=== PATIENT | male | born 1965 | race Caucasian/White ===

== ENCOUNTER → 2020-10-18 | Outpatient (CLI) | payer OTHER ==
[~2020-10-18] MED LIST: AMLO10 PO; ATEN50 PO; FLUO20 PO; Zyprexa10 MG PO
== END ==
LOC: LAB SHORT 13:02
DX: R35.0 Frequency of micturition (principal); R32 Unspecified urinary incontinence
CPT/HCPCS: 87086

== ENCOUNTER 2021-01-20 14:27 | Inpatient (IN) | payer OTHER ==
[~2021-01-20] VITALS: Ht 175.3 cm; Wt 65.0 kg
[~2021-01-20 14:27] MED LIST changes: -AMLO10 PO; +AMLO5 PO; -FLUO20 PO; -Zyprexa10 MG PO
[2021-01-20 14:40] LABS: BASOPHILS ABSOLUTE AUTO 0.03 K/mm3 (0.00-0.23); BASOPHILS PERCENT AUTO 0 % (0-2); EOSINOPHILS PERCENT AUTO 0 % (0-6); Hematocrit 45.3 % (37.0-53.0); Hemoglobin 15.5 g/dL (13.5-17.5); IMMATURE GRAN ABSOLUTE AUTO 0.05 K/mm3 (0.00-0.10); IMMATURE GRAN PERCENT AUTO 0 % (0-1); LYMPHOCYTES ABSOLUTE AUTO 0.43 K/mm3 (0.84-5.20); LYMPHOCYTES PERCENT AUTO 3 % (21-46); MONOCYTES ABSOLUTE AUTO 1.25 K/mm3 (0.16-1.47); MONOCYTES PERCENT AUTO 8 % (4-13); Mean Corpuscular HGB 30.6 pg (26.0-34.0); Mean Corpuscular HGB Conc 34.2 g/dL (31.5-36.5); Mean Corpuscular Volume 90 fL (80-100); Mean Platelet Volume 10.6 fL (9.1-12.4); NEUTROPHILS ABSOLUTE AUTO 13.04 K/mm3 (1.96-9.15); NEUTROPHILS PERCENT AUTO 88 % (41-73); Platelet Count 183 K/mm3 (150-400); RDW Coefficient Variation 12.2 % (11.7-14.2); RDW Standard Deviation 40.6 fL (35.1-46.3); Red Blood Cell Count 5.06 M/mm3 (4.30-5.90)
[2021-01-20 15:19] LABS: Alanine Aminotransfer (ALT/SGP 28 U/L (12-78); Albumin, Blood 3.6 g/dL (3.4-5.0); Albumin/Globulin Ratio 1.1 (0.8-1.8); Alk Phos 85 U/L (50-136); Anion Gap 9 mmol/L (6-16); Aspartate Aminotrans (AST/SGOT 26 U/L (12-37); Bilirubin, Total 1.2 mg/dL (0.1-1.0); Blood Urea Nitrogen 9 mg/dL (8-24); Bun/Creatinine Ratio 10.7 (12.0-20.0); CO2, Blood 26 mmol/L (21-32); Chloride, Blood 105 mmol/L (98-108); Creatinine, Blood 0.84 mg/dL (0.60-1.20); Ethanol (Alcohol), Blood, Med <3 mg/dL; Globulin, Blood 3.2 g/dL (2.2-4.0); Glomerular Filtration Rate >60 (60-); Glucose, Blood 120 mg/dL (70-99); Potassium, Blood 3.8 mmol/L (3.5-5.5); Sodium, Blood 140 mmol/L (136-145); Total Protein, Blood 6.8 g/dL (6.4-8.2)
[2021-01-20 15:35] LABS: Source, Urine Catheter
[2021-01-20 15:38] LABS: Influenza A, PCR NEGATIVE (NEGATIVE); Influenza B, PCR NEGATIVE (NEGATIVE); Resp Syncytial Virus, PCR NEGATIVE (NEGATIVE); SARS-Cov-2 (COVID-19) PCR, MMC NEGATIVE (NEGATIVE)
[2021-01-20 15:52] LABS: U Amphetamine Screen Not Detected; U Barbituate Screen Not Detected; U Benzodiazapine Screen DETECTED; U Buprenorphine Screen Not Detected; U Cannabinoids Screen Not Detected; U Cocaine Screen Not Detected; U Methadone Screen Not Detected; U Methamphetamine Screen Not Detected; U Opiates Screen Not Detected; U Oxycodone Screen Not Detected; U Phencyclidine Screen Not Detected; U Propoxyphene Screen Not Detected
[2021-01-20 15:55] LABS: Appearance, Urine Hazy (Clear); Bilirubin, Urine Neg (Neg); Blood, Urine Neg (Neg); Color, Urine Yellow (P-Yellow); Glucose Qualitative, Urine Neg (Neg); Ketones, Urine 1+ (Neg); Leukocyte Esterase, Urine Neg (Neg); Nitrite, Urine Neg (Neg); Protein, Urine 2+ (Neg); Specific Gravity, Urine 1.025 (1.003-1.022); Urobilinogen, Urine 1+ (Normal)
[2021-01-20 16:00] LABS: Amorphous Heavy (0-Heavy); Bacteria Many /hpf; Red Blood Cells, Urine 0-2 /hpf (0-2); Squamous Epithelial Cells Few /hpf (Few); White Blood Cells, Urine 0-2 /hpf (0-5)
[2021-01-20 18:45] LABS: CHOL/HDL RATIO 2.8; Cholesterol 152 mg/dL (50-200); HDL Cholesterol 55 mg/dL (>39); LDL/HDL RATIO 1.4; Low Density Lipoprotein Chol 75 mg/dL (0-110); Magnesium, Blood 2.1 mg/dL (1.6-2.4); Triglycerides 108 mg/dL (30-160); Very Low Density Lipoprot Chol 21 mg/dL (6-32)
[2021-01-20 18:46] LABS: Thyroid Stimulating Hormone 0.834 uIU/mL (0.360-4.800)
[2021-01-21 04:15] LABS: BASOPHILS ABSOLUTE AUTO 0.03 K/mm3 (0.00-0.23); BASOPHILS PERCENT AUTO 0 % (0-2); EOSINOPHILS ABSOLUTE AUTO 0.02 K/mm3 (0.00-0.68); EOSINOPHILS PERCENT AUTO 0 % (0-6); Hematocrit 43.1 % (37.0-53.0); Hemoglobin 14.7 g/dL (13.5-17.5); IMMATURE GRAN ABSOLUTE AUTO 0.05 K/mm3 (0.00-0.10); IMMATURE GRAN PERCENT AUTO 0 % (0-1); LYMPHOCYTES ABSOLUTE AUTO 1.31 K/mm3 (0.84-5.20); LYMPHOCYTES PERCENT AUTO 10 % (21-46); MONOCYTES ABSOLUTE AUTO 1.21 K/mm3 (0.16-1.47); MONOCYTES PERCENT AUTO 9 % (4-13); Mean Corpuscular HGB 30.4 pg (26.0-34.0); Mean Corpuscular HGB Conc 34.1 g/dL (31.5-36.5); Mean Corpuscular Volume 89 fL (80-100); Mean Platelet Volume 11.3 fL (9.1-12.4); NEUTROPHILS ABSOLUTE AUTO 10.21 K/mm3 (1.96-9.15); NEUTROPHILS PERCENT AUTO 80 % (41-73); Platelet Count 174 K/mm3 (150-400); RDW Standard Deviation 39.5 fL (35.1-46.3); Red Blood Cell Count 4.83 M/mm3 (4.30-5.90); White Blood Cell Count 12.83 K/mm3 (4.00-11.30)
[2021-01-21 04:40] LABS: Alanine Aminotransfer (ALT/SGP 27 U/L (12-78); Albumin, Blood 3.1 g/dL (3.4-5.0); Albumin/Globulin Ratio 0.9 (0.8-1.8); Alk Phos 79 U/L (50-136); Anion Gap 6 mmol/L (6-16); Aspartate Aminotrans (AST/SGOT 31 U/L (12-37); Blood Urea Nitrogen 7 mg/dL (8-24); Bun/Creatinine Ratio 10.3 (12.0-20.0); CO2, Blood 27 mmol/L (21-32); Calcium, Blood 8.9 mg/dL (8.5-10.1); Chloride, Blood 105 mmol/L (98-108); Creatinine, Blood 0.68 mg/dL (0.60-1.20); Globulin, Blood 3.5 g/dL (2.2-4.0); Glomerular Filtration Rate >60 (60-); Glucose, Blood 97 mg/dL (70-99); Magnesium, Blood 2.3 mg/dL (1.6-2.4); Potassium, Blood 3.5 mmol/L (3.5-5.5); Sodium, Blood 138 mmol/L (136-145); Total Protein, Blood 6.6 g/dL (6.4-8.2)
--- NOTE | 2021-01-21 05:07 | NUR ---
SHIFT SUMMARY ASSUMED CARE OF PT FROM ER AT 2335. PT LETHARGIC AND UNRESPONSIVE. NON VERBAL. SATS OVER 90% ON RA. HR NSR. BP ELEVATED. DEVELOPMENTALLY DELAYED AT BASELINE, WITH COGNITION OF 13 YEAR OLD PER HIS MOTHER. HIS MOTHER IS PRESENT AND STAYED THE NIGHT. ON BED REST. WILL REACH OUT WHEN PHYSICALLY STIMULATED. NPO. IN BED SLEEPING WITH CALL ALARM AT SIDE. WILL CONTINUE TO MONITOR UNTIL REPORT GIVEN
--- NOTE | 2021-01-21 09:43 | NUR ---
PATIENT SLEEPING IN BED THIS AM, NOT OPENING EYES AND NONVERBAL. MOANS AND MOVES EXTREMITIES WITH STERNAL RUB. MOTHER AT BEDSIDE. RIGHT PUPIL REACTIVE TO LIGHT. LEFT EYE HISTORY OF BLINDNESS PER MOM. WEAK BILATERAL SENIOR PORTFOLIO ANALYST. FOLLOWS SOME VERBAL COMMANDS. CARBON PAPER MACHINE OPERATOR IN ROOM AT LATER TIME AND STATED PATIENT SAID "YES" TWICE. ON ROOM AIR SATING MID 90'S. TELE SHOWING SINUS RHYTHM WITH HR 70-80'S. BP STABLE. DOES NOT APPEAR TO BE IN ANY PAIN. ATTENDS IN PLACE. NPO AT THIS TIME. Q4 ORAL CARE WITH Q2 TURNING AND NEEDED. ULTRASOUND DONE THIS AM AND PATIENT CURRENTLY AT MRI. WILL CONTINUE TO MONITOR.
--- NOTE | 2021-01-21 17:30 | NUR ---
SHIFT SUMMARY: PATIENT SLOWLY BECOMING MORE VERBAL. ABLE TO ANSWER YES AND NO QUESTIONS. STATING DATE OF AND MOTHERS NAME. PER PATIENTS MOTHER THAT IS MUCH SHE GETS HIM TO TALK AT HOME. SLEEPING ON AND OFF THROUGHOUT SHIFT. MEDICAL STATUS NO TELE. REMAINS ON ROOM AIR. SATING MID 90'S. WEAK MOIST SOUNDING COUGH. ORAL CARE Q4. TURNING Q2. CONDOM CATH IN PLACE. ATTENDS IN PLACE. D5W AND 1/2 NS INFUSING. CBG CHECKS BID. CALL LIGHT IN REACH. SPEECH THERAPY PLANS TO SEE PATIENT IN AM. MOTHER AT BEDSIDE PLANS TO BE BACK IN AM TO HELP WITH DAILY CARES. BP REMAINS HIGH. WILL CONTINUE TO MONITOR AND REPORT OFF.
[2021-01-22 04:19] LABS: BASOPHILS ABSOLUTE AUTO 0.03 K/mm3 (0.00-0.23); BASOPHILS PERCENT AUTO 0 % (0-2); EOSINOPHILS ABSOLUTE AUTO 0.04 K/mm3 (0.00-0.68); EOSINOPHILS PERCENT AUTO 0 % (0-6); Hematocrit 39.3 % (37.0-53.0); Hemoglobin 13.7 g/dL (13.5-17.5); IMMATURE GRAN ABSOLUTE AUTO 0.03 K/mm3 (0.00-0.10); IMMATURE GRAN PERCENT AUTO 0 % (0-1); LYMPHOCYTES ABSOLUTE AUTO 1.48 K/mm3 (0.84-5.20); LYMPHOCYTES PERCENT AUTO 13 % (21-46); MONOCYTES ABSOLUTE AUTO 0.98 K/mm3 (0.16-1.47); MONOCYTES PERCENT AUTO 9 % (4-13); Mean Corpuscular HGB Conc 34.9 g/dL (31.5-36.5); Mean Corpuscular Volume 89 fL (80-100); Mean Platelet Volume 11.2 fL (9.1-12.4); NEUTROPHILS ABSOLUTE AUTO 8.63 K/mm3 (1.96-9.15); NEUTROPHILS PERCENT AUTO 77 % (41-73); Platelet Count 157 K/mm3 (150-400); RDW Standard Deviation 39.1 fL (35.1-46.3); Red Blood Cell Count 4.42 M/mm3 (4.30-5.90); White Blood Cell Count 11.19 K/mm3 (4.00-11.30)
[2021-01-22 05:37] LABS: Anion Gap 9 mmol/L (6-16); Blood Urea Nitrogen 6 mg/dL (8-24); CO2, Blood 27 mmol/L (21-32); Chloride, Blood 101 mmol/L (98-108); Creatinine, Blood 0.67 mg/dL (0.60-1.20); Glomerular Filtration Rate >60 (60-); Glucose, Blood 96 mg/dL (70-99); Potassium, Blood 3.6 mmol/L (3.5-5.5); Sodium, Blood 137 mmol/L (136-145)
--- NOTE | 2021-01-22 05:57 | NUR ---
SHIFT SUMMARY PT RESTED WELL THROUGH THE NIGHT. DID WAKE UP A COUPLE TIMES ATTEMPTING TO GET OUT OF BED WIHTOUT USING CALL LIGHT. PT WAS ABLE TO VERBALIZE HIS NEEDS IN FEW WORD SENTENCES. MENTATION SEEMS TO BE HEADING TO BASELINE PER FAMILY. NO TELE, BUT NO C/O CHEST PAIN OR ANY SIGNS OF CARDIAC EVENTS. SATS >95% ON ROOM AIR. WAS ABLE TO BE 1-2 PERSON ASSIST TO BSC TO VOID, PT WASNT ABLE TO URINATE IN URINAL. NO BM. DID PULL AT LINES, BUT WAS ABLE TO REORIENT AND REMIND PT TO NOT PULL LINES. ATIVAN X1 FOR AGITATION. NO SEIZURE-LIKE ACTIVITY. VSS. NO C/O PAIN. CALL LIGHT WITHIN REACH, BED IN LOWEST POSITION. WILL CONTINUE TO MONITOR. BED ALARM ON.
--- NOTE | 2021-01-22 08:00 | NUR ---
INITIAL ASSESSMENT: SPEECH THERAPY AT BEDSIDE FOR EVAL, PT FAILED-REMAIN NPO AND HE WILL BE REASSESSED. HE WAS ASSISTED OOB TO THE BSC TO VOID, PT IS ABLE TO STAND WELL BUT APPEARS TO HAVE PROBLEMS WITH BALANCE. CHAIR ALARM IN PLACE PATIENT IS IMPULSIVE AND HAS NOT USED THE CALL LIGHT. MOTHER AT THE BEDSIDE. VSS. LS CORASE WITH EXP WHEEZING, BIOX WNL ON RA. PT HAS WEAK NPC, MOTHER STATES PT HAS COPD. PT TO ROOM FOR ASSESSMENT, WILL CONTINUE TO MONITOR.
--- NOTE | 2021-01-22 17:07 | NUR ---
SUMMARY: PATIENT HAS BEEN RESTING THE MAJORITY OF THE DAY. HE WAS ABLE TO WORK WITH PT/OT,HE AMBULATED IN THE HALLWAY. HE WAS NOT ABLE TO PASS HIS SWALLOW EVAL, SPEECH THERAPY WAS CONCERNED ABOUT HIS COUGH AND SOME SIGNS OF ASPIRATION WITH CERTIAN TEXTURES-WILL REASSESS AGAIN TOMORROW. BS HAVE BEEN STABLE WITH D5 1/2 NS. HE SEEMS TO BE MORE ORIENTED TODAY. HE CONTINUES TO BE IMPULSIVE WITH BED ALARM ON. HE HAS COARSE LS WITH SOME WHEEZING T/O, AND A WEAK NPC-MD ORDERED F/U CHEST X-RAY.MOM STATES PT HAS CHRONIC COUGH BUT IS NEVER ABLE TO GET SPUTUM OUT. BIOX HAS BEEN STABLE ON RA. NO ACUTE CHANGES THIS SHIFT, WILL REPORT TO ONCOMING RN.
--- NOTE | 2021-01-23 03:28 | NUR ---
SHIFT SUMMARY A/O TO SELF AND FAMILY. PCU TRANSFER THIS SHIFT. 1-2 WORD RESPONSES WHICH IS BASELINE. WEAK GAIT, 1 ASSIST WITH GB. STRICT NPO. VSS, NO ACUTE CHANGES AT THIS TIME. BED IN LOWEST POSITION WITH CALL LIGHT IN REACH. WILL CONTINUE TO MONITOR AND REPORT TO ONCOMING RN.
[2021-01-23 06:03] LABS: BASOPHILS ABSOLUTE AUTO 0.02 K/mm3 (0.00-0.23); BASOPHILS PERCENT AUTO 0 % (0-2); EOSINOPHILS ABSOLUTE AUTO 0.04 K/mm3 (0.00-0.68); EOSINOPHILS PERCENT AUTO 1 % (0-6); Hematocrit 40.4 % (37.0-53.0); Hemoglobin 13.8 g/dL (13.5-17.5); IMMATURE GRAN ABSOLUTE AUTO 0.02 K/mm3 (0.00-0.10); IMMATURE GRAN PERCENT AUTO 0 % (0-1); LYMPHOCYTES ABSOLUTE AUTO 1.18 K/mm3 (0.84-5.20); LYMPHOCYTES PERCENT AUTO 15 % (21-46); MONOCYTES ABSOLUTE AUTO 0.97 K/mm3 (0.16-1.47); MONOCYTES PERCENT AUTO 12 % (4-13); Mean Corpuscular HGB 30.2 pg (26.0-34.0); Mean Corpuscular HGB Conc 34.2 g/dL (31.5-36.5); Mean Corpuscular Volume 88 fL (80-100); Mean Platelet Volume 11.5 fL (9.1-12.4); NEUTROPHILS ABSOLUTE AUTO 5.62 K/mm3 (1.96-9.15); NEUTROPHILS PERCENT AUTO 72 % (41-73); Platelet Count 165 K/mm3 (150-400); RDW Standard Deviation 38.8 fL (35.1-46.3); Red Blood Cell Count 4.57 M/mm3 (4.30-5.90); White Blood Cell Count 7.85 K/mm3 (4.00-11.30)
[2021-01-23 07:13] LABS: Anion Gap 9 mmol/L (6-16); Blood Urea Nitrogen 5 mg/dL (8-24); Bun/Creatinine Ratio 7.5 (12.0-20.0); CO2, Blood 28 mmol/L (21-32); Calcium, Blood 8.7 mg/dL (8.5-10.1); Chloride, Blood 101 mmol/L (98-108); Creatinine, Blood 0.67 mg/dL (0.60-1.20); Glomerular Filtration Rate >60 (60-); Glucose, Blood 79 mg/dL (70-99); Potassium, Blood 3.5 mmol/L (3.5-5.5); Sodium, Blood 138 mmol/L (136-145)
[2021-01-23] MEDS ORDERED: ZESTRIL40 M1 PO (16:38)
[2021-01-23] MEDS ORDERED: METO50ER PO (16:39)
[2021-01-23] MEDS ORDERED: Prozac40 MG PO (16:39)
[2021-01-23] MEDS ORDERED: Zyprexa10 MG PO (16:40)
--- NOTE | 2021-01-23 18:06 | NUR ---
SUMM- PT AMBULATING SBA GOOD STRENGTH STEADY ON FEET. AMBULATED IN HALLWAY WITH WALKER WITH PT/OT X2 TODAY. VOIDING WITHOUT DIFFICULTY. PASSED SWALLOW IS ON GEN, THICK LIQ DIET. DRINKING WITHOUT DIFFICULTY. OVER 2L PO FLUIDS THIS SHIFT. IVF DC'D. CXR THIS AFTERNOON SHOWED IMPROVEMENT. LATONYA IN CHARGE OF DC TO SNF LIKELY TOMORROW. MOM AT BEDSIDE ALL AFTERNOON, INVOLVED IN CARE. NOTIFIED DR MICHEL OF BP AND NORVASC READDED. WILL REPORT TO NOC RN.
--- NOTE | 2021-01-24 04:16 | NUR ---
PATIENT IS ALERT AND ORIENTED X2, 1-2 WORD RESPONSES, AMBULANCE TO RESTROOM AND DOES NOT USE CALL LIGHT FOR ASSISTANCE. PATIENT REMOVED IV IN HIS RIGHT AC. STABLE VITALS, NO ACUTE CHANGES.
[2021-01-24 05:19] LABS: BASOPHILS ABSOLUTE AUTO 0.02 K/mm3 (0.00-0.23); BASOPHILS PERCENT AUTO 0 % (0-2); EOSINOPHILS ABSOLUTE AUTO 0.07 K/mm3 (0.00-0.68); EOSINOPHILS PERCENT AUTO 1 % (0-6); Hematocrit 41.4 % (37.0-53.0); IMMATURE GRAN ABSOLUTE AUTO 0.04 K/mm3 (0.00-0.10); IMMATURE GRAN PERCENT AUTO 1 % (0-1); LYMPHOCYTES ABSOLUTE AUTO 1.43 K/mm3 (0.84-5.20); LYMPHOCYTES PERCENT AUTO 17 % (21-46); MONOCYTES ABSOLUTE AUTO 1.22 K/mm3 (0.16-1.47); MONOCYTES PERCENT AUTO 14 % (4-13); Mean Corpuscular HGB Conc 33.8 g/dL (31.5-36.5); Mean Corpuscular Volume 89 fL (80-100); Mean Platelet Volume 11.2 fL (9.1-12.4); NEUTROPHILS ABSOLUTE AUTO 5.88 K/mm3 (1.96-9.15); NEUTROPHILS PERCENT AUTO 68 % (41-73); Platelet Count 181 K/mm3 (150-400); RDW Coefficient Variation 12.1 % (11.7-14.2); Red Blood Cell Count 4.67 M/mm3 (4.30-5.90); White Blood Cell Count 8.66 K/mm3 (4.00-11.30)
[2021-01-24 06:16] LABS: Anion Gap 5 mmol/L (6-16); Blood Urea Nitrogen 11 mg/dL (8-24); Bun/Creatinine Ratio 16.6 (12.0-20.0); CO2, Blood 27 mmol/L (21-32); Calcium, Blood 8.6 mg/dL (8.5-10.1); Chloride, Blood 103 mmol/L (98-108); Creatinine, Blood 0.66 mg/dL (0.60-1.20); Glomerular Filtration Rate >60 (60-); Glucose, Blood 92 mg/dL (70-99); Potassium, Blood 3.9 mmol/L (3.5-5.5); Sodium, Blood 135 mmol/L (136-145)
--- NOTE | 2021-01-24 19:45 | NUR ---
SUMMARY- PT ALERT TO SELF AND FAMILY ONLY. ANSWERS 1-2 WORD SENTENCES. PT AMBULATES SBA TO BATHROOM AND AMBULATED MULT TIMES TODAY IN THE HALLWAY. PT SLEPT ON/OFF ALL DAY. MEDS ADJUSTED WITH STARTING XYPREXA AND BP MEDS. BP LOWER TODAY. AWAITING SNF, NO BEDS AVAILABLE. PT AND OT DO NOT SEE THAT PT WILL QUALIFY FOR SNF AND THAT MAY BE BETTER FOR PT TO GO HOME WITH HH. REPORTED TO ABHINAV PRICE.
--- NOTE | 2021-01-25 05:01 | NUR ---
FLIGHT OPERATIONS SPECIALIST SUMMARY PATIENT HAD A FAIR SHIFT. HIS V/S WERE STABLE. HE LODGED NIL FRESH COMPLAINT. WILL CONTINUE TO MONITOR.
[2021-01-25 05:13] LABS: BASOPHILS ABSOLUTE AUTO 0.03 K/mm3 (0.00-0.23); BASOPHILS PERCENT AUTO 0 % (0-2); EOSINOPHILS ABSOLUTE AUTO 0.08 K/mm3 (0.00-0.68); EOSINOPHILS PERCENT AUTO 1 % (0-6); Hematocrit 41.6 % (37.0-53.0); Hemoglobin 14.3 g/dL (13.5-17.5); IMMATURE GRAN ABSOLUTE AUTO 0.03 K/mm3 (0.00-0.10); IMMATURE GRAN PERCENT AUTO 0 % (0-1); LYMPHOCYTES ABSOLUTE AUTO 1.75 K/mm3 (0.84-5.20); LYMPHOCYTES PERCENT AUTO 26 % (21-46); MONOCYTES ABSOLUTE AUTO 0.92 K/mm3 (0.16-1.47); MONOCYTES PERCENT AUTO 13 % (4-13); Mean Corpuscular HGB 30.6 pg (26.0-34.0); Mean Corpuscular HGB Conc 34.4 g/dL (31.5-36.5); Mean Corpuscular Volume 89 fL (80-100); Mean Platelet Volume 11.3 fL (9.1-12.4); NEUTROPHILS ABSOLUTE AUTO 4.04 K/mm3 (1.96-9.15); NEUTROPHILS PERCENT AUTO 59 % (41-73); Platelet Count 185 K/mm3 (150-400); RDW Coefficient Variation 12.3 % (11.7-14.2); RDW Standard Deviation 39.8 fL (35.1-46.3); Red Blood Cell Count 4.68 M/mm3 (4.30-5.90); White Blood Cell Count 6.85 K/mm3 (4.00-11.30)
[2021-01-25 06:07] LABS: Anion Gap 9 mmol/L (6-16); Blood Urea Nitrogen 17 mg/dL (8-24); Bun/Creatinine Ratio 22.3 (12.0-20.0); CO2, Blood 26 mmol/L (21-32); Calcium, Blood 8.8 mg/dL (8.5-10.1); Chloride, Blood 104 mmol/L (98-108); Creatinine, Blood 0.76 mg/dL (0.60-1.20); Glomerular Filtration Rate >60 (60-); Glucose, Blood 83 mg/dL (70-99); Sodium, Blood 139 mmol/L (136-145)
--- NOTE | 2021-01-25 11:21 | NUR ---
PATIENT ALERT AND ORIENTED X3. MINIMAL VERBAL RESPONSE OF 1-2 WORDS. PER MOTHER AT BEDSIDE THIS IS PATIENTS BASELINE. HISTORY OF LEFT EYE BLINDNESS. RIGHT EYE PERRLA. ABLE TO MOVE ALL EXTREMITIES IN BED. DENIES NUMBNESS/TINGLING. PHYSICAL THERAPY WORKING WITH PATIENT. UP TO CHAIR FOR MEALS. MEAL SET UP ASSISTANCE. LUNGS SOUNDING COARSE AND DIM IN BASES WITH A OCCASIONAL CONGESTED/LOOSE/WEAK SOUNDING COUGH. DENIES SOB. NO TELE. BP AND HR STABLE. DENIES CHEST PAIN/PRESSURE. ATTENDS IN PLACE 1 PERSON ASSIST TO BATHROOM. BED ALARM AND CHAIR ALARM IN PLACE. PATIENT NOT USING CALL LIGHT. MOTHER AT BEDSIDE AT THIS TIME. EATING WELL. NECTAR THICK FLUIDS WITH NO STRAWS. DENIES ABDOMINAL PAIN/NAUSEA. VITAL SIGNS STABLE. CALL LIGHT IN REACH. SLEEPING AT THIS TIME. WILL CONTINUE TO MONITOR.
--- NOTE | 2021-01-25 14:46 | NUR ---
UPDATE: SPEECH THERAPY IN TO SEE PATIENT. NEW ORDERS FOR MECHANICAL DIET AND SUPERVISION WHEN EATING TO ENSURE SWALLOWING AND NOT POCKETING FOOD. PATIENT UP IN CHAIR FOR MEALS AND ORAL CARE AFTER. LUNCH FINISHED, AND BACK IN BED AT THIS TIME SLEEPING ON AND OFF.
--- NOTE | 2021-01-25 18:48 | NUR ---
SHIFT SUMMARY: SEE PREVIOUS NOTES. NO ACUTE CHANGES. PATIENT SLEEPING IN BED AT THIS TIME. NO CHANGES IN NEURO. UP TO CHAIR FOR MEALS. TOLERATING MECHANICAL SOFT DIET AND NECTAR THICK FLUID. BED ALARM AND CHAIR ALARM REMAIN IN PLACE. UP TO BATHROOM WITH ONE ASSIST. NOT USING CALL LIGHT. VITAL SIGNS REMAIN STABLE. WILL CONTINUE TO MONITOR AND REPORT OFF TO ONCOMING RN.
--- NOTE | 2021-01-26 03:56 | NUR ---
WASTEWATER TREATMENT SUPERVISOR SUMMARY PATIENT HAD A FAIR SHIFT. HIS V/S WERE STABLE. NO COMPLAINTS OVERNIGHT. WILL CONTINUE TO MONITOR HIM.
[2021-01-26 04:54] LABS: BASOPHILS ABSOLUTE AUTO 0.03 K/mm3 (0.00-0.23); BASOPHILS PERCENT AUTO 1 % (0-2); EOSINOPHILS ABSOLUTE AUTO 0.07 K/mm3 (0.00-0.68); EOSINOPHILS PERCENT AUTO 1 % (0-6); Hematocrit 42.3 % (37.0-53.0); Hemoglobin 14.4 g/dL (13.5-17.5); IMMATURE GRAN ABSOLUTE AUTO 0.02 K/mm3 (0.00-0.10); IMMATURE GRAN PERCENT AUTO 0 % (0-1); LYMPHOCYTES ABSOLUTE AUTO 1.47 K/mm3 (0.84-5.20); LYMPHOCYTES PERCENT AUTO 23 % (21-46); MONOCYTES ABSOLUTE AUTO 0.79 K/mm3 (0.16-1.47); MONOCYTES PERCENT AUTO 12 % (4-13); Mean Corpuscular Volume 88 fL (80-100); Mean Platelet Volume 11.1 fL (9.1-12.4); NEUTROPHILS PERCENT AUTO 63 % (41-73); Platelet Count 192 K/mm3 (150-400); White Blood Cell Count 6.48 K/mm3 (4.00-11.30)
[2021-01-26 05:11] LABS: Anion Gap 7 mmol/L (6-16); Blood Urea Nitrogen 16 mg/dL (8-24); Bun/Creatinine Ratio 21.9 (12.0-20.0); CO2, Blood 25 mmol/L (21-32); Calcium, Blood 8.9 mg/dL (8.5-10.1); Chloride, Blood 105 mmol/L (98-108); Creatinine, Blood 0.73 mg/dL (0.60-1.20); Glomerular Filtration Rate >60 (60-); Glucose, Blood 93 mg/dL (70-99); Potassium, Blood 4.3 mmol/L (3.5-5.5); Sodium, Blood 137 mmol/L (136-145)
--- NOTE | 2021-01-26 17:13 | NUR ---
SUMMARY PT RESTING QUIETLY IN BED, UP INDEPENDENTLY, BED ALARM ON FOR SAFETY, PT DOES NOT USE HIS CALL LIGHT, PT L EYE BLIND, MINIMAL 1-2 WORD ANSWERS, NO OTHER NEURO DEFECITS NOTED, PT DENIES PAIN OR SOB, PLAN TO DC IN AM, VSS, WILL CONT TO MONITOR
--- NOTE | 2021-01-27 04:29 | NUR ---
PATIENT RESTED SOME OVER NIGHT. ASKING FOR HIS MOM, GETTING OUT OF BED LOOKING FOR HER. HE ASKED TO GO HOME WELL. GAIT IS SLIGHTLY UNSTEADY. VITALS REVIEWED WILL CONTINUE TO MONITOR.
[2021-01-27] MEDS ORDERED: Aspirin325 MG PO (12:21)
[2021-01-27] MEDS ORDERED: LEVE500 PO (12:22)
--- NOTE | 2021-01-27 15:09 | NUR ---
SUMMARY/DISCHARGE PT DISCHARGED TO HOME, PT'S MOTHER IN AND DISCHARGE INSTRUCTIONS GIVEN TO HER, PT TAKEN OUT SAFELY VIA WHEELCHAIR
--- NOTE | 2021-01-28 08:25 | NUR ---
Per Dr. Chilel discharge appropriate on 01/27/21. Patient's family do not oppose. Patient scheduled for discharged to his residence with family. Transportation provided by family. DME: none needed at this time. Patient has a strong support system to include his mother and siblings. M Transition of Care will contact patient to schedule hospital follow up appointment with PCP. [facility] (mother's choice) was contacted on 01/25 for long-term needs. No barriers to discharge at this time.
== END 2021-01-27 15:03 | disposition home health service (06) | DRG 64 ==
LOC: ER 14:27 → MEDS 18:12 → PCU 18:12 → ERHOLD 18:12 → PCU 23:22 → MEDS 01-22 22:45
PROVIDERS: Family Medicine; Nurse Practitioner Acute Care; Student in an Organized Health Care Education/Training Program; ADMIT Internal Medicine
DX: I63.89 Other cerebral infarction (principal); J18.9 Pneumonia, unspecified organism; Q21.1 Atrial septal defect; F20.9 Schizophrenia, unspecified; Z20.822 Contact with and (suspected) exposure to COVID-19; G40.409 Other generalized epilepsy and epileptic syndromes, not intractable, without status epilepticus; I10 Essential (primary) hypertension; F32.A Depression, unspecified; F17.210 Nicotine dependence, cigarettes, uncomplicated; R62.59 Other lack of expected normal physiological development in childhood; G31.84 Mild cognitive impairment of uncertain or unknown etiology
CPT/HCPCS: 0241U; 36415; 70450; 70551; 71045; 71046; 80048; 80053; 80061; 81001; 82947; 83036; 83690; 83735; 83880; 84145; 84443; 85025; 87086; 92526; 92610; 93005; 93010; 93880; 93970; 94760; 96365; 96366; 96367; 96368; 96375; 96376; 97110; 97112; 97116; 97162; 97165; 97530; 97535; 99291-25; A9270; G0480; J0360; J0456; J0696; J1650; J1953; J2060; J2250; J3475; J7030; J7042; J7050; J7120

== ENCOUNTER → 2022-06-06 | Outpatient (CLI) | payer OTHER ==
[~2022-06-06] MED LIST changes: +ATORVASTATIN CA20 MG PO; +Aspirin325 MG PO; +LEVE500 PO; +METO50ER PO; +Prozac40 MG PO; +ZESTRIL40 M1 PO; +Zyprexa10 MG PO
[2022-06-06 15:48] LABS: Source, Urine Clean Catch
[2022-06-06 17:05] LABS: Appearance, Urine Clear (Clear); Bilirubin, Urine Neg (Neg); Blood, Urine Neg (Neg); Glucose Qualitative, Urine Neg (Neg); Ketones, Urine Neg (Neg); Leukocyte Esterase, Urine Neg (Neg); Nitrite, Urine Neg (Neg); Protein, Urine Neg (Neg); Specific Gravity, Urine 1.015 (1.003-1.022); Urobilinogen, Urine NORM (Normal)
[2022-06-06 17:13] LABS: Color, Urine Pale Yellow (P-Yellow)
== END ==
LOC: LAB SHORT 14:34 → LAB 14:34 → LAB FUT 05-23 16:55
PROVIDERS: Physician Assistant
DX: R35.0 Frequency of micturition (principal); R32 Unspecified urinary incontinence
CPT/HCPCS: 81003

== ENCOUNTER 2022-08-08 14:54 | Observation (INO) | payer OTHER ==
[~2022-08-08] VITALS: Ht 175.3 cm; Wt 75.0 kg
[~2022-08-08 14:54] MED LIST changes: +OLAN20 PO; -Zyprexa10 MG PO
[2022-08-08 17:34] LABS: BASOPHILS ABSOLUTE AUTO 0.01 K/mm3 (0.00-0.23); BASOPHILS PERCENT AUTO 0 % (0-2); EOSINOPHILS ABSOLUTE AUTO 0.08 K/mm3 (0.00-0.68); EOSINOPHILS PERCENT AUTO 1 % (0-6); Hematocrit 41.1 % (37.0-53.0); Hemoglobin 14.1 g/dL (13.5-17.5); IMMATURE GRAN ABSOLUTE AUTO 0.02 K/mm3 (0.00-0.10); IMMATURE GRAN PERCENT AUTO 0 % (0-1); LYMPHOCYTES ABSOLUTE AUTO 1.28 K/mm3 (0.84-5.20); LYMPHOCYTES PERCENT AUTO 16 % (21-46); MONOCYTES ABSOLUTE AUTO 0.72 K/mm3 (0.16-1.47); MONOCYTES PERCENT AUTO 9 % (4-13); Mean Corpuscular HGB 30.7 pg (26.0-34.0); Mean Corpuscular HGB Conc 34.3 g/dL (31.5-36.5); Mean Corpuscular Volume 89 fL (80-100); Mean Platelet Volume 11.3 fL (9.1-12.4); NEUTROPHILS ABSOLUTE AUTO 5.72 K/mm3 (1.96-9.15); NEUTROPHILS PERCENT AUTO 73 % (41-73); Platelet Count 179 K/mm3 (150-400); RDW Coefficient Variation 12.4 % (11.7-14.2); RDW Standard Deviation 40.7 fL (35.1-46.3); White Blood Cell Count 7.83 K/mm3 (4.00-11.30)
[2022-08-08 17:48] LABS: Ethanol (Alcohol), Blood, Med <3 mg/dL; Salicylate <1.7 mg/dL (2.8-20.0); Thyroxine (T4) 9.3 ug/dL (4.5-12.1)
[2022-08-08] MEDS ORDERED: FLUO10 PO (17:51)
[2022-08-08] MEDS ORDERED: DEPAKOTE ER500 M2 PO (17:51)
[2022-08-08] MEDS ORDERED: PLAVIX75 MG PO (17:52)
[2022-08-08 18:00] LABS: Alanine Aminotransfer (ALT/SGP 31 U/L (12-78); Albumin, Blood 3.6 g/dL (3.4-5.0); Albumin/Globulin Ratio 1.2 (0.8-1.8); Alk Phos 76 U/L (50-136); Anion Gap 4 mmol/L (6-16); Aspartate Aminotrans (AST/SGOT 24 U/L (12-37); Bilirubin, Total 1.3 mg/dL (0.1-1.0); Blood Urea Nitrogen 8 mg/dL (8-24); Bun/Creatinine Ratio 8.1 (12.0-20.0); CO2, Blood 29 mmol/L (21-32); Calcium, Blood 8.7 mg/dL (8.5-10.1); Chloride, Blood 106 mmol/L (98-108); Creatinine, Blood 0.98 mg/dL (0.60-1.20); Globulin, Blood 3.1 g/dL (2.2-4.0); Glomerular Filtration Rate 90 (60-); Glucose, Blood 98 mg/dL (70-99); Potassium, Blood 3.8 mmol/L (3.5-5.5); Sodium, Blood 139 mmol/L (136-145); Total Protein, Blood 6.7 g/dL (6.4-8.2)
[2022-08-08 18:01] LABS: Acetaminophen, Random <2.0 ug/mL (10.0-30.0)
[2022-08-08 18:18] LABS: Source, Urine Clean Catch
[2022-08-08 18:30] LABS: Bilirubin, Urine Neg (Neg); Blood, Urine Neg (Neg); Glucose Qualitative, Urine Neg (Neg); Ketones, Urine Neg (Neg); Leukocyte Esterase, Urine Neg (Neg); Nitrite, Urine Neg (Neg); Protein, Urine Neg (Neg); Urobilinogen, Urine NORM (Normal); pH, Urine 6.5 (5.0-8.0)
[2022-08-08 18:35] LABS: Appearance, Urine Clear (Clear); Color, Urine Pale Yellow (P-Yellow)
[2022-08-08 18:44] LABS: U Amphetamine Screen Not Detected; U Barbituate Screen Not Detected; U Benzodiazapine Screen Not Detected; U Buprenorphine Screen Not Detected; U Cannabinoids Screen Not Detected; U Cocaine Screen Not Detected; U Methadone Screen Not Detected; U Methamphetamine Screen Not Detected; U Opiates Screen Not Detected; U Oxycodone Screen Not Detected; U Phencyclidine Screen Not Detected; U Propoxyphene Screen Not Detected
--- NOTE | 2022-08-16 17:51 | NUR ---
CALLED REPORT FOR PT TO COME TO FLOOR. REPORT FROM [place]. STATES CONSULT PAPER TO DR PICKARD FOR CONSULT IN HIS INBOX IN ER.
--- NOTE | 2022-08-16 18:04 | NUR ---
PT HERE AT 1802, ARRIVED WHEELCHAIR. QUIET PLEASNT
[2022-08-16 18:09] VITALS: BP 154/100
--- NOTE | 2022-08-16 19:35 | NUR ---
PT ADMITTED 1804. HE IS QUIET PLEASNT TIMID COOP WITH 1 WORD ANSWERS. H/R REG, NO MUIRMUR NOTED, NO TELE. LUNGS CLEAR, RESP EASY, UNLABORED. ON R/A. SETTLED PT TO BED, CALL LITE IN REACH, SITTER AT ROOM, 2 MD HOLD. PASSED REPORT TO AYDE PRICE.
--- NOTE | 2022-08-17 04:40 | NUR ---
08/17/22 Patient orders and charting evaluated. Patient was on hospital hold in the ED BHU. Patient was transferred to medical floor but it is unclear if patient is to still be on hold status. Discussed situation with Sound Mixer Mariza Ponce, who did talk with U nurses. Patients hold is over on 08/18. Patient at this time is being treated as if he is on a hold. Patient has a 1:1 sitter with Q15 min bubble charting. WE will continue to follow 2MD hold protocal until it can be discussed with Mariano Isabel in the AM. Beside RN is aware of plan.
--- NOTE | 2022-08-17 05:39 | NUR ---
SHIFT SUMMARY: PATIENT ALERT AND ORIENTED TO SELF. ANSWER TO QUESTION YES OR NO AND NODE. DENIES SI. 1:1 SITTER IN ROOM. PLEASANT AND COOPERATIVE c CARE. RECEIVED SCHEDULED MEDS PER EMAR. DENIES GENERALIZED PAIN, N/V, SOB. VITAL SIGNS REVIEWED. SLEPT WELL T/O SHIFT.
[2022-08-17 08:18] VITALS: BP 152/95
[2022-08-17 14:53] VITALS: BP 162/92
--- NOTE | 2022-08-17 19:13 | NUR ---
PT QUIET AND PLEASANT TODAY. CONTINUES ON SITTER TODAY. CONTINUES TO ANSWER ONLY 1 WORD ANSWERS. PENDING PLACEMENT. NO NEW CONCERNS NOTED. BED IN LOW POSITION, CALL LITE IN REACH, CALLS APPRP
[2022-08-17 19:48] VITALS: BP 160/98
[2022-08-18 02:51] VITALS: BP 157/97
--- NOTE | 2022-08-18 05:23 | NUR ---
SHIFT SUMMARY: NO NEW ACUTE CHANGES IN PATIENT CONDITION THIS SHIFT. PATIENT CONTINUE TO BE NON INTERACTIVE c CONVERSATION, QUITE AND ONLY ANSWER ONE WORD TO QUESTIONS, LIKE YES OR NO AND SOMETIMES NODE HIS HEAD. PATIENT ALERT AND ORIENTED TO SELF. 1:1 SITTER IN ROOM. PLEASANT AND COOPERATIVE c CARE. RECEIVED SCHEDULED MEDS PER EMAR. VITAL SIGNS REVIEWED. DENIES CP/PRESSURE, N/V, SOB.
[2022-08-18 07:30] VITALS: BP 171/84
[2022-08-18 16:35] VITALS: BP 146/91
--- NOTE | 2022-08-18 18:04 | NUR ---
SHIFT SUMMARY PT A&OX4 AND IN PLEASENT MOOD T/O SHIFT. 1:1 SITTER PRESENT. FAMILY IN TO SEE PT THIS SHIFT, PT PRESENTED W/ [employer] PAPERWORK THIS SHIFT. RESTING IN BED T/O SHIFT. IND IN ROOM CALL LIGHT W/ IN REACH. TOLERATING PO INTAKE WELL.
[2022-08-18 20:54] VITALS: BP 131/74
[2022-08-19 03:29] VITALS: BP 164/86
--- NOTE | 2022-08-19 05:34 | NUR ---
SHIFT SUMMARY AXO WITH SITTER AT BEDSIDE, PT SHOWS NO DISTRESS NOR DOES HE SHOW ANY INTEREST IN WHAT i HAVE TO SAY, FLAT AFFECT BUT RESPONDS APPROPRIATLEY, COBY AWARE OF CALLING ME FOR ANYTHING NEEDED. IN
[2022-08-19 07:18] VITALS: BP 133/84
--- NOTE | 2022-08-19 11:24 | NUR ---
PATIENT MOTHER SHOWED UP AT 11:00 AM. HE IMMEDIATLY STARTED CUSSING AT HER AND CALLING HER A BITCH AND FLIPPING HER OFF WITH BOTH HANDS. VERBALLY AGGRESSIVE. HE IS UPSET WITH HER BECAUSE HE TOLD HER SHE WAS KICKING HIM OUT OF THE HOUSE. HE TOLD HER TO LEAVE AND SHE SAID SHE WOULD GO BECAUSE HE WASNT BEING NICE. SHE SAID SHE JUST WANTS HIM TO BE KIND. HE THEN TOLD HER " I HOPE YOU BITCH." THEN HE STATED " I WILL KILL YOU LATER BITCH"
[2022-08-19 15:01] VITALS: BP 150/99
--- NOTE | 2022-08-19 17:32 | NUR ---
SHIFT SUMMARY PT INDPENDENT IN ROOM THROUGH THE DAY. SHOWER TAKEN THIS AFTERNOON. STATES HE HASN'T HAD A BM SINCE ARRIVAL TO UNIT. BROWN COW GIVEN. SITTER AT BEDSIDE. MOTHER CAME TO VISIT PT FOR SHORT TIME. NO PHYSICAL AGGRESSION TOWARD HER BUT KEPT CALLING HER A BITCH AND HE WAS GOING TO CREMATE HER THEN SAYING GOODBYE AND THANK YOU. NO OTHER OBVIOUS OR APPARENT BEHAVIORS. DENIED ANY COMBUSTIBLE DEVICES IN ROOM.
[2022-08-19 19:30] VITALS: BP 154/85
[2022-08-20 03:13] VITALS: BP 141/87
--- NOTE | 2022-08-20 05:00 | NUR ---
SHIFT SUMMARY PT MORE TALKATIVE TODAY, MAINTAINING EYE CONTACT, SITTER AT BED SIDE NO CHANGE IN CONDITION.
[2022-08-20 07:07] VITALS: BP 133/83
[2022-08-20 15:34] VITALS: BP 141/90
--- NOTE | 2022-08-20 17:34 | NUR ---
SHIFT SUMMARY SITTER AT BEDSIDE WITH ENDING THE USE O SITTER THIS EVENING. PT HAS APPEARED TO BE APPROPRIATE WITH STAFF AND COOPERATIVE AND HOLD NO LONGER IN PLACE. MOTHER IN TO VISIT FOR SHORT TIME AND SHE REPORTS PT HAS BEEN MORE VERBALLY AGGRESSIVE TOWARD HER WHEN SHE TALKS ABOUT WHAT ATTEMPTS HAVE BEEN MADE TODAY IN TRYING TO FIND HIM NEW SAFE HOUSING. ALSO SEEN RAISING HIS MIDDLE FINGER AT HER. INDEPENDENT IN ROOM. DENIES ANY SOURCE OF IGNITION AND MOTHER DENIES BRINGING ANY SOURCE TO ROOM. EDUCATED BEST A PT COMPREHENDS FIRE SAFETY.
[2022-08-20 21:13] VITALS: BP 130/62
[2022-08-21 04:36] VITALS: BP 135/86
--- NOTE | 2022-08-21 04:47 | NUR ---
SHIFT SUMAMRY PT ALERT TO SELF, MAINLY ONLY ANSWERS YES AND NO QUESTIONS.PT REMAINS ON RA, INDEPENDENT IN ROOM. NO C/O PAIN NOTED. PT PENDING GUARDIANSHIP/PLACEMENT AT THIS TIME. WILL CONTINUE TO MONITOR. CALL LIGHT WITHIN REACH.
[2022-08-21 07:17] VITALS: BP 131/84
[2022-08-21 16:11] VITALS: BP 127/78
--- NOTE | 2022-08-21 17:45 | NUR ---
SHIFT SUMMARY PT INDEPENDENT IN ROOM. REPORTS HE HAD A BM YESTERDAY WHEN ASKED. QUIET AND COOPERATIVE WITH NO NEGATIVE BEHAVIORS TOWARD STAFF. ANSWERS QUESTIONS TO THE BEST OF HIS ABILITY. BROTHER IN TO VISIT FOR SHORT TIME THIS MORNING.
[2022-08-21 19:57] VITALS: BP 134/83
--- NOTE | 2022-08-22 05:01 | NUR ---
SHIFT SUMMARY NO ACUTE CHANGES NOTED DURING SHIFT. PT ALERT TO SELF, CONFUSED. PT REMAINS ON RA, INDEPENDENT IN ROOM. NO C/O PAIN NOTED. PT WAITING FOR GUARDIANSHIP/PLACEMENT. WILL CONTINUE TO MONITOR. CALL LIGHT WITHIN REACH.
[2022-08-22 08:30] VITALS: BP 139/91
--- NOTE | 2022-08-22 11:08 | NUR ---
RN NOTE PT RESTING IN BED. ORIENTATED TO HIS NAME, TO JULY 2019, TO "HAI". QUIET VOICE BUT ABLE TO ANSWER QUESTIONS WITH FEW WORDS. CALM QUIET AFFECT THIS AM. PT EDUCATED RE IGNITION SOURCES AND RISK OF INJURY WHILE OXYGEN IS IN USE. PATIENT DENIES SMOKING AND VERBALISED UNDERSTANDING. WILL CONTINUE TO ASSESS IGNITION RISK WITH HOURLY ROUNDS. BED LOW, CALL [facility] IN REACH.
[2022-08-22 14:25] VITALS: BP 134/77
--- NOTE | 2022-08-22 15:21 | NUR ---
SHIFT SUMMARY MR HOLDER HAS BEEN CALM, RESPONDS APPROPRIATELY TO QUESTIONS WITH A FEW WORDS. HE HAS DENIED ANY C/O PAIN. HE HAS BEEN UP INDEPENDENTLY TO [facility] BATHROOM AND CHAIR. RESTING IN BED NOW. BED LOW, CALL LIGHT IN REACH.
[2022-08-22 20:11] VITALS: BP 141/82
--- NOTE | 2022-08-23 04:58 | NUR ---
SHIFT SUMMARY PT IS A&O TO SELF, MUMBLES ONE WORD ANSWERS, IND IN THE ROOM, RA, VSS, NO COMPAINTS OF PAIN OR DISCOMFORT OVERNIGHT, FIRE MITIGATON EDUCATION PROVIDED, CONTINUE POC
[2022-08-23 07:40] VITALS: BP 144/92
--- NOTE | 2022-08-23 10:50 | NUR ---
RN NOTE MR HOLDER IS QUIETLY RESTING IN HIS ROOM. ORIENTATED TO HIS NAME, TO [place], NOT TO DATE OR SITUATION WHEN ASKED. HE DENIES ANY PROBLEMS OR CONCERNS WITH BOWEL/BLADDER/GETTING UP TO BATHROOM. HE DENIED ANY PAIN. PT EUCATED RE IGNITION SOURCES AND RISK OF INJURY WHEN OXYGEN IS IN USE. PT VERBALISED UNDERSTANDING AND RISK ASSESSMENT DONE ON HOURLY ROUNDS. BED LOW, CALL LIGHT IN REACH THOUGH PT HAS NOT USED IT.
[2022-08-23 15:00] VITALS: BP 117/78
--- NOTE | 2022-08-23 16:38 | NUR ---
SHIFT SUMMARY MR HOLDER HAS DENIED ANY PROBLEMS OR CONCERNS TODAY. HE HAS BEEN UP INDEPENDENTLY TO THE BATHROOM AND BRIEFLY INTO THE HALLWAY WITH STEADY GAIT. CALM AND QUIET, ANSWERING QUESTIONS WITH FEW WORD SENTENCES. NO ACUTE CHANGES.
[2022-08-23 20:28] VITALS: BP 133/81
--- NOTE | 2022-08-24 05:02 | NUR ---
SHIFT SUMMARY PT IS A&O TO SELF, IND IN THE ROOM, RA, VSS, NO ACUTE OVERNIGHT EVENTS, FIRE IGINITION SAFET EDUCATION PROVIDEDE, CONTINUE POC
[2022-08-24 07:48] VITALS: BP 126/86
--- NOTE | 2022-08-24 16:37 | NUR ---
SHIFT SUMMARY PT SPENT MOST OF THE SHIFT IN HIS ROOM. HE IS POLITE AND COOPERATIVE WITH CARE. RESPONDING TO QUESTIONS WITH ONE WORD ANSWERS. HE IS INDEPENDENT WITH ADL'S IN THE ROOM. FULL CODE. NO IV ACCESS. VSS. NO ACUTE CHANGES.
[2022-08-24 19:11] VITALS: BP 123/89
--- NOTE | 2022-08-25 03:21 | NUR ---
BUNCHER HAND SUMMARY VSS. FEW WORDS VOICED, QUIET WITH LOW VOICE TONES IN ANSWERING QUESTIONS. VOICED LIKES LEMONADE, TAKES MEDS WITH IT. NO NOTED AGGRESSIVE OUTBREAKS. HAS BEEN RESTING QUIETLY WITH FEW INTERRUPTIONS THIS SHIFT. UP AD RADHIKA, MONITORED FOR SAFETY. NO NOTED SZ ACTIVITY. CALL LIGHT IN REACH. WILL CONTINUE TO MONITOR.
--- NOTE | 2022-08-25 04:41 | NUR ---
NURSE NOTE RECEIVED FIRE IGNITION TEACHING RE NOT TO SMOKE WHILE ON O2 AND NOT TO SMOKE IN GENERAL EARLIER IN THE SHIFT
[2022-08-25 05:12] VITALS: BP 128/86
[2022-08-25 07:45] VITALS: BP 165/88
[2022-08-25 15:52] VITALS: BP 126/85
--- NOTE | 2022-08-25 16:22 | NUR ---
SHIFT SUMMARY PATIENT IS ALERT BUT NOT ORIENTED. PATIENT HAS BEEN PLEASENT AND COOPERATIVE WITH CARE THIS SHIFT. VITAL SIGNS REVIEWED. PATIENT HAS BEEN IND IN ROOM AND HALLS THIS SHIFT. PATIENT HAS NOT COMPLAINED OF PAIN, NAUSEA, SOB OR VOMITTING THIS SHIFT. BED IN LOCKED AND LOWEST POSITION. CALL LIGHT IN PLACE. WILL MONITOR UNTIL SHIFT CHANGE.
[2022-08-25 19:07] VITALS: BP 142/90
--- NOTE | 2022-08-25 20:42 | NUR ---
NURSE NOTE RECEIVED FIRE IGNITION TEACHING RE NO SMOKING WHILE ON O2 IN THE HOSPITAL, ENCOURAGED NOT TO SMOKE, EARLIER
--- NOTE | 2022-08-26 03:32 | NUR ---
BUNKER WORKER SUMMARY BP ELEVATED, OTHERWISE VSS. INTERACTIONS WITH STAFF, PT IS QUIET AND HAS LOW TONED VOICE IN ANSWERING QUESTIONS. COOPERATIVE WITH CARE. UP AD RADHIKA, DENIED PAIN WHEN ASKED. HAS BEEN RESTING QUIETLY WITH FEW INTERRUPTIONS. CALL LIGHT IN REACH. WILL CONTINUE TO MONITOR.
[2022-08-26 08:05] VITALS: BP 136/81
[2022-08-26 15:33] VITALS: BP 140/83
--- NOTE | 2022-08-26 18:14 | NUR ---
SHIFT SUMMARY PATIENT WITH NO ACUTE EVENTS TODAY, COOPERATIVE WITH CARE, INDEPENDENT WALKING [place] MINIMALLY. NO AGGRESSIVE BEHAVIORS DURING SHIFT. BED IN LOW POSITION. CALL LIGHT IN REACH. HOURLY ROUNDING DONE AND FIRE PREVENTION AND EDUCATION PROVIDED. WILL CONTINUE TO MONITOR.
[2022-08-26 20:14] VITALS: BP 156/91
--- NOTE | 2022-08-27 06:27 | NUR ---
UNEVENTFUL NIGHT. PT IS INDEPENDENT IN ROOM AND HALLS. MAKES NEEDS KNOWN APPROPRIATELY. PLEASANT, VSS, ORIENTED WITH SLOW RESPONSES. AWAITING PLACEMENT.
[2022-08-27 07:16] VITALS: BP 128/84
--- NOTE | 2022-08-27 16:48 | NUR ---
SHIFT SUMMARY PATIENT WITH NO ACUTE EVENTS DURING SHIFT. AGREABLE WITH CARE. UP WALKING HALLWAY INTERMITTENT AND ASKING FOR LEMONADE. DENIES PAIN. BED IN LOW POSITION, CALL LIGHT IN REACH. PATIENT CALLS APPROPRIATELY. WILL CONTINUE TO MONITOR.
[2022-08-27 17:15] VITALS: BP 141/86
[2022-08-27 19:35] VITALS: BP 143/83
--- NOTE | 2022-08-28 06:45 | NUR ---
NO SIGNIFICANT CHANGES NOTED THIS SHIFT. PT INDEPENDENT, VSS, PLEASANT, FLAT AFFECT, MAKES NEEDS KNOWN. FIRE SAFETY REVIEWED. BROTHERBRIAN, HOPES TO SPEAK WITH MD ABOUT MEDICATIONS TO MAKE SURE PT HAS CORRECT COMBINATION OF MEDS.
[2022-08-28 07:24] VITALS: BP 142/86
[2022-08-28 14:57] VITALS: BP 107/70
--- NOTE | 2022-08-28 17:33 | NUR ---
SHIFT SUMMARY: Pt remains calm and alert to self this shift. VSS, Denies pain. Ambulating independently. Resp even nonlabored on RA. Tolerating diet and meds. Q1 hour fire safety checks completed. No further needs id or verbalized at this time. Will continue to monitor.
[2022-08-28 19:59] VITALS: BP 134/77
[2022-08-29 04:10] VITALS: BP 154/86
--- NOTE | 2022-08-29 06:39 | NUR ---
NO CHANGES NOTED, UNEVENTFUL NIGHT. MAKES NEEDS KNOWN. UP AD RADHIKA, PLEASANT, COOPERATIVE, VSS ON RA. FIRE SAFTEY REVIEWED.
[2022-08-29 07:06] VITALS: BP 146/96
[2022-08-29 14:59] VITALS: BP 129/77
--- NOTE | 2022-08-29 18:06 | NUR ---
SHIFT SUMMARY: Pt remains alert to self this shift. VSS, denies pain. Ambulating independently in hallway. Tolerating diet, feeds self. Meeting with pt brother/guardian and potential snf staff today. Will await response for placement. No c/o or needs id at this time . Will continue to monitor this shift. Fire safety rounds Q1 hour completed.
[2022-08-29 20:42] VITALS: BP 132/89
[2022-08-30 04:05] VITALS: BP 150/82
--- NOTE | 2022-08-30 05:01 | NUR ---
SHIFT SUMMARY PATIENT HAD NO ACUTE CHANGES. ALERT TO SELF AND INDEPENDENT IN ROOM AND HALLWAY. SLOW TO RESPOND. TAKES MEDICATION WHOLE WITH WATER. NO IV ACCESS. DENIES CHEST PAIN, SOB, AND N/V. VSS/AFEBRILE. FIRE SAFETY AND EDUCATION ROUNDING PROVIDED. SLEPT MOST OF THE SHIFT. CALL LIGHT IN REACH. BED IN LOWEST POSITION. WILL CONTINUE TO MONITOR UNTIL DAY SHIFT NURSE ASSUMES CARE.
[2022-08-30 07:25] VITALS: BP 133/93
--- NOTE | 2022-08-30 15:21 | NUR ---
SHIFT SUMMARY PT AWAKE DURING SHIFT REPORT. PLEASANT AND CO-OP. DENIED NEEDS. PT UP AMBULATING IN HALLS, LOOKING OUT WINDOWS. REQUESTS LEMONADE, FREQUENTLY AT TIMES. OTHERWISE SITS IN RM AND WATCHES TV. NO C/O. ABLE TO USE CALL LT. PT MEDICALLY STABLE, WAITING FOR PLACEMENT.
[2022-08-30 15:29] VITALS: BP 133/91
[2022-08-30 19:12] VITALS: BP 136/82
[2022-08-31 04:44] VITALS: BP 136/87
--- NOTE | 2022-08-31 05:31 | NUR ---
SHIFT SUMMARY PATIENT HAD NO ACUTE CHANGES. ALERT TO SELF AND INDEPENDENT IN ROOM AND HADLEY. DENIES CHEST PAIN, SOB, AND N/V. VSS/AFEBRILE. MOSTLY WATCHED TV FIRST PART OF SHIFT. FIRE SAFETY AND EDUCATION PROVIDED IN ROUNDING. COOPERATIVE WITH CARE. CALL LIGHT IN REACH. BED IN LOWEST POSITION. WILL CONTINUE TO MONITOR UNTIL DAY SHIFT NURSE ASSUMES CARE.
[2022-08-31 07:38] VITALS: BP 131/88
[2022-08-31 15:16] VITALS: BP 127/91
--- NOTE | 2022-08-31 15:19 | NUR ---
SHIFT SUMMARY NO ACUTE CHANGES TO PRESENT THIS SHIFT. PT CONTINUES TO WAIT FOR PLACEMENT. NO C/O. UP INDEPENDENTLY IN RM AND WALKING IN HALLS. REQUESTS LEMONADE OR ROOTBEER OFTEN, BUT OTHERWISE DENIES NEEDS. VSS; SEE CHART. DR CONNORS IN TO SEE PT THIS AM. NO NEW ORDERS TO PRESENT. CALL LT IN REACH.
[2022-08-31 19:28] VITALS: BP 133/76
[2022-09-01 02:29] VITALS: BP 137/80
--- NOTE | 2022-09-01 04:30 | NUR ---
SHIFT SUMMARY PATIENT HAD NO ACUTE CHANGES. ALERT TO SELF AND INDEPENDENT IN ROOM AND HALLWAY. DENIES CHEST PAIN, SOB, AND N/V. VSS/AFEBRILE. ON ROOM AIR. WATCHED TV FIRST PART OF SHIFT. NO IV ACCESS. CALL LIGHT IN REACH. BED IN LOWEST POSITION. WILL CONTINUE TO MONITOR UNTIL DAY SHIFT NURSE ASSUMES CARE.
[2022-09-01 07:20] VITALS: BP 142/81
[2022-09-01 15:32] VITALS: BP 136/75
--- NOTE | 2022-09-01 17:03 | NUR ---
SHIFT SUMMARY- PT IS ALERT AND PLESANT GIVES SHORT ONE WORD RESPONSES TO QUESTIONS. HE IS INDEPENDENT IN THE ROOM. HIS BED IS IN THE LOW POSITON AND CALL LIGHT IS WITHIN REACH.
[2022-09-01 19:25] VITALS: BP 145/88
[2022-09-02 02:29] VITALS: BP 134/81
--- NOTE | 2022-09-02 06:09 | NUR ---
Shift Summary Pt answering questions with one word yes/no or head shakes. He is alert and oriented although orientation difficult to assess. Independent in the room. Slept well t/o the night, no complaints. Awaiting placement. Per housekeeper child care note placement has been found in a [place] longterm and transfer could occure later this week.
[2022-09-02 07:44] VITALS: BP 163/84
[2022-09-02 15:41] VITALS: BP 115/71
--- NOTE | 2022-09-02 16:49 | NUR ---
SHIFT SUMMARY PATIENT WITH NO ACUTE EVENTS TODAY. TOOK MEDICATIONS ORDERED BY MD. PATIENT DOES NOT CALL BUT WILL APPROACH STAFF AND REQUEST "LEMONADE" OR "ROOT BEER" HE FEELS HE NEEDS IT. CALL LIGHT IN REACH. HOURLY ROUNDING DONE AND FIRE PREVENTION MITIGATION AND ASSESSMENT PROVIDED. WILL CONTINUE TO MONITOR.
[2022-09-02 19:30] VITALS: BP 126/81
--- NOTE | 2022-09-03 00:52 | NUR ---
PT EDUCATED ON [employer] FIRE SAFETY IGNITION/EXPLOSIVE SOURCES NON SMOKING POLICY AND VERBALIZED UNDERSTANDING.
--- NOTE | 2022-09-03 03:05 | NUR ---
SHIFT SUMMARY NOC PT A/O X 2-3. PLEASNT AND COOPERATIVE WITH CARE. PT IS MOSTLY NON VERBAL, BUT CAN COMMUNICATE NEEDS BY COMING INTO HALLWAY AND TALKING TO NURSING STAFF. NO ACUTE CHANGES TO REPORT. PT IS INDEPENDENT IN ROOM AND HALLWAY. PT HAS GUARDIANSHIP PAPERS IN PLACE AND IS AWAITING PLACEMENT IN LTC FACILITY. PT IS CURRENTLY RESTING WITH BED IN LOWEST POSITION, AND CALL LIGHT WITHIN REACH.
[2022-09-03 05:11] VITALS: BP 143/77
[2022-09-03 07:33] VITALS: BP 147/89
[2022-09-03 15:16] VITALS: BP 150/75
[2022-09-03 19:34] VITALS: BP 158/86
--- NOTE | 2022-09-03 20:09 | NUR ---
SHIFT SUMMARY NO ACUTE EVENTS DURING SHIFT. PATIENT UP INDEPENDENTLY IN ROOM. COMMUNICATES NEEDS EFFECTIVELY.
[2022-09-04 05:15] VITALS: BP 126/70
[2022-09-04 07:08] VITALS: BP 132/83
--- NOTE | 2022-09-04 10:25 | NUR ---
ASSUMED CARE OF PT. REPORT RECEIVED FROM V[employer]OR PRICE. PT DENIES CONCERNS OR NEEDS DURING BEDSIDE REPORT. PT IN NO APPARENT DISTRESS. RR E/U.
[2022-09-04 15:43] VITALS: BP 135/78
--- NOTE | 2022-09-04 18:34 | NUR ---
SHIFT SUMMARY: PT A/O X 3, IND IN ROOM. PLEASANT AND COOPERATIVE WITH CARE. PT HAD NO CONCERNS THROUGHOUT THE DAY. HIS SISTER CAME AND VISITED. AWAITING GUARDIANSHIP AND PLACEMENT.
[2022-09-04 20:19] VITALS: BP 153/81
[2022-09-05 03:29] VITALS: BP 131/101
[2022-09-05 03:30] VITALS: BP 146/93
--- NOTE | 2022-09-05 05:13 | NUR ---
SHIFT SUMMARY PATIENT ALERT, PLEASANT AFFECT, MINIMAL INTERACTION. DENIES PAIN NOR DISCOFORT. PATIENT'S BROTHER, BRIAN, IN TO VISIT, STATES HIS BROTHER IS LEAVING ON THURSDAY, FOUND A PLACE IN [place] THAT WILL TAKE HIM. NO ACUTE CHANGES OVERNIGHT. HAS BEEN SLEEPING SOUNDLY SINCE ABOUT 23:3O. BED IN LOW POSITION, CALL LIGHT WITHIN REACH.
[2022-09-05 07:38] VITALS: BP 126/79
[2022-09-05] MEDS ORDERED: DIPH50 PO (16:31)
[2022-09-05] MEDS ORDERED: MELATONIN5 M1 PO (16:32)
[2022-09-05] MEDS ORDERED: TRAZ50 PO (16:32)
[2022-09-05 17:53] VITALS: BP 125/99
--- NOTE | 2022-09-05 19:51 | NUR ---
SHIFT SUMMARY: PT A/O X 3, IND IN ROOM PLEASANT AND COOPERATIVE WITH CARE. PT HAD NO COMPLAINTS THROUGHOUT THE DAY. EATING WELL. PT WAS REPORTED TO HAVE SLEPT WELL LAST NIGHT AFTER TRAZADONE GIVEN. PER ABHINAV RN SLEPT UNTIL ABOUT 6 AM.
--- NOTE | 2022-09-05 19:58 | NUR ---
PT HAD NO EVIDENT USE OF IGNITION SOURCES WHILE ROUNDING.
--- NOTE | 2022-09-05 23:58 | NUR ---
PT EDUCATED ON [facility] FIRE SAFETY IGNITION/EXPLOSIVE SOURCES NON SMOKING POLICY AND VERBALIZED UNDERSTANDING.
[2022-09-06 03:01] VITALS: BP 136/91
--- NOTE | 2022-09-06 03:16 | NUR ---
SHIFT SUMMARY NOC PT ORIENTED BUT SLOW. PLEASANT AND COOPERATIVE WITH CARE. NO ACUTE CHANGES TO REPORT. PT IS AWAITING DISCHARGE ON THURSDAY TO [facility] UP IN [place]. PT BROTHER HAS GUARDIANSHIP AND PAPERWORK IS ON FRONT OF PT CHART. PT IS CURRENTLY RESTING WITH BED IN LOWEST POSITION, AND CALL LIGHT WITHIN REACH.
[2022-09-06 07:10] VITALS: BP 136/78
[2022-09-06 14:53] VITALS: BP 117/73
--- NOTE | 2022-09-06 18:13 | NUR ---
SHIFT SUMMARY PT A&OX3 AND COOPERATIVE OF CARE. NO ACUTE CHANGES. PT APPROCHES STAFF IN [place] FOR NEEDS. PT AMBULATED SEVERAL TIMES UP AND DOWN [place] IN EVENING. VSS. PT REMINDED OF POSSIBLE SOURCES OF IGNITION AND NO SMOKING POLICY. BED IN LOWEST POSITION AND CALL LIGHT IN REACH.
[2022-09-06 19:22] VITALS: BP 143/85
--- NOTE | 2022-09-06 23:56 | NUR ---
PT EDUCATED ON [facility] FIRE SAFETY IGNITION/EXPLOSIVE SOURCES NON SMOKING POLICY AND VERBALIZED UNDERSTANDING.
--- NOTE | 2022-09-07 02:38 | NUR ---
SHIFT SUMMARY NOC PT A/O X 3. SLOW TO RESPOND, BUT RESPONDS APPROPRIATELY. NO ACUTE CHANGES TO REPORT. PT WALKS HALLWAYS OCCASSIONALLY, AND WILL COME OUT OF ROOM TO ASK NURSING STAFF FOR SOMETHING TO EAT OR DRINK. PT PLANNING TO DISCHARGE THURSDAY TO [facility] IN [place], BROTHER IS PT GUARDIAN, LETTER IN FRONT OF CHART. PT IS CURRENTLY RESTING WITH BED IN LOWEST POSITION, AND CALL LIGHT WITHIN REACH.
[2022-09-07 05:20] VITALS: BP 122/108
[2022-09-07 07:31] VITALS: BP 140/83
[2022-09-07 15:12] VITALS: BP 142/85
--- NOTE | 2022-09-07 16:48 | NUR ---
SHIFT SUMMARY PT A&OX4 AND COOPERATIVE OF CARE. NO ACUTE CHANGES. PT AMBULATES IN [place] AND WILL ASK STAFF FOR DRINKS OR TO WALK OUT ON MAIN FLOOR. PT EASILY REDIRECTABLE. VSS. PT REMINDED OF POSSIBLE SOURCES OF IGNITION AND NO SMOKING POLICY. MOTHER AND SISTER IN TO SEE PT IN AFTERNOON. CLEAN CLOTHES BROUGHT IN FOR PT'S DC TOMORROW AT 10OO AND PLACED IN CLOSET. BED IN LOWEST POSITION AND CALL LIGHT IN REACH.
[2022-09-07 19:12] VITALS: BP 145/94
--- NOTE | 2022-09-08 02:37 | NUR ---
PT EDUCATED ON [facility] FIRE SAFETY IGNITION/EXPLOSIVE SOURCES NON SMOKING POLICY AND VERBALIZED UNDERSTANDING.
--- NOTE | 2022-09-08 03:31 | NUR ---
SHIFT SUMMARY NOC PT A/O X 3. PLEASANT AND COOPERATIVE WITH CARE. PT COMMUNICATES NEEDS BY APPROACHING STAFF AND ASKING FOR FOOD/BEVERAGE. NO ACUTE CHANGES TO REPORT. PT IS SCHEDULED TO DISCHARGE WITH BROTHER WHO IS GUARDIAN TOMORROW FOR [facility] UP IN [place] AROUND 10-1030 AM TODAY. PT IS CURRENTLY RESTING WITH BED IN LOWEST POSITION, AND CALL LIGHT WITHIN REACH.
[2022-09-08 04:23] VITALS: BP 138/85
[2022-09-08] MEDS ORDERED: OLAN10A MM (09:40)
[2022-09-08] MEDS ORDERED: ASPI81CH PO (09:48)
--- NOTE | 2022-09-08 11:42 | NUR ---
Patient's brother, Luiz, sees me in the hallway outside the patient's rm. He talks about the shift in guardianship over to him and the plan to take hime to a facility in [place]. Luiz explains about how the staff from the facility came down and the visit went well and that the patient feels good about the transition to that facility. Luiz asks for continued prayer for the patient and for wisdom for himself in making decisions for his brother. I, of course, do so. Luiz voices his appreciation for the conversation. I will continue to remain available to patient and family.
--- NOTE | 2022-09-08 11:50 | NUR ---
PT DISCHARGE AT 1100 WITH BROTHER TO TRANSFER TO [facility]. PACKET PROVIDED AND REVIEWED EDCUATIONAL MATERIAL PROVIDED. DANGERS OF FIRE AND IGNITION SOURCES REVIEWED DURING HOURLY ROUNDING. ALL PERSONAL BELONINGS COLLECTED AND PT AMBULATED OUT ON HIS OWN WITH HIS BROTHER REFUSING WHEELCHAIR ESCORT.
== END 2022-09-08 11:01 | disposition home or self-care (01) ==
LOC: ER 14:54 → MEDS 14:55 → EOR 14:55 → MEDS 14:55 → EOR 14:55 → MEDS 08-16 18:14
PROVIDERS: Physician Assistant; ADMIT Emergency Medicine
DX: F20.0 Paranoid schizophrenia (principal); R45.1 Restlessness and agitation; Z86.73 Personal history of transient ischemic attack (TIA), and cerebral infarction without residual deficits; I10 Essential (primary) hypertension; G40.909 Epilepsy, unspecified, not intractable, without status epilepticus; G47.00 Insomnia, unspecified; F05 Delirium due to known physiological condition
CPT/HCPCS: 36415; 80053; 81003; 84436; 85025; 96372; 99285-25; A9270; G0378; G0480; J1630; J1650; J2060; Q3014